=== PATIENT | female | born 1995 | race Caucasian/White ===

== ENCOUNTER → 2018-05-27 10:02 | Outpatient (CLI) | payer OTHER, MEDICAID, SELFPAY ==
--- NOTE | 2018-05-27 | DI.RAD.S_ITS ---
PROCEDURE: XR ANKLE LT MIN 3V INDICATIONS: LEFT ANKLE PAIN TECHNIQUE: 3 views of the ankle were acquired. COMPARISON: None. FINDINGS: Bones: Oblique fracture of the lateral malleolus at the level, and just above the tibiofibular syndesmosis. Soft tissues: No tibiotalar joint effusion. Achilles tendon appears normal. IMPRESSION: Lateral malleolar fracture as above Dictated by: Corbin Gutierrez M.D. on 05/27/2018 at 11:51 Approved by: Corbin Gutierrez M.D. on 05/27/2018 at 11:55
== END ==
PROVIDERS: Visit Provider Family Medicine
DX: S82.62XA Displaced fracture of lateral malleolus of left fibula, initial encounter for closed fracture (principal); M25.572 Pain in left ankle and joints of left foot
CPT/HCPCS: 73610